=== PATIENT | male | born 2005 | race Caucasian/White ===

== ENCOUNTER 2024-08-07 18:37 | Inpatient (IN) ==
--- NOTE | 2024-08-07 19:12 | Emergency Department Note ---
Impression & Plan Suicidal ideations, Addictive gambling, Depression ED Provider Note NAME: SUNNI BERRY AGE: 18 SEX: M : 2005 ARRIVES VIA: Walk-In INFORMANT: Patient ED PROVIDER(S): Fer Ayala DO CHIEF COMPLAINT: Suicidal ideations HPI: Patient is a 18-year-old male who presents to the ER for suicidal ideations. Patient has a gambling addiction and owes a fair amount of money to someone. They are calling him and harassing him for the money. He notes is not due till tomorrow. He made statements that he is going to kill himself multiple times today. He called his mom and dad and told him that he has nothing left to live for and that he is going to kill himself. He did not express a clear plan. He notes he is unclear if he was going to kill himself at this time. He admitted that he would think of a way. He denies any headache or change in vision. No chest pain or shortness of breath. No nausea, vomiting, or diarrhea. No dysuria, urgency, or frequency. No other exacerbating or remitting factors. ADDITIONAL HISTORY OBTAINED: Per HPI Chronic Medical/Social Conditions Affecting Care: Per HPI PAST MEDICAL HISTORY:See Below PAST SURGICAL HISTORY:See Below FAMILY HISTORY:See Below SOCIAL HISTORY:See Below HOME MEDICATIONS:See Below ALLERGIES:See Below VITALS:See Below PHYSICAL EXAMINATION: GENERAL: Sitting up in bed, alert, well appearing, well nourished, no distress, non-toxic EYE EXAM: normal conjunctiva. PERRL and EOM's grossly intact. OROPHARYNX: mucous membranes are moist NECK: supple, no nuchal rigidity, no adenopathy, non-tender LUNGS: Clear to auscultation. Normal chest wall mechanics HEART: no murmurs, S1 normal and S2 normal ABDOMEN: abdomen soft, non-tender, normo-active bowel sounds, no masses, no rebound or guarding. UPPER EXTREMITIES: upper extremities are grossly normal. LOWER EXTREMITIES: No pitting edema. NEURO EXAM: Normal sensorium, cranial nerves II-XII grossly intact, normal speech, no gross weakness of arms, no gross weakness of legs. PSYCH: Admits to suicidal thoughts with no clear plan. He feels helpless. MEDICAL DECISION MAKING: Patient is a 18-year-old male who presents ER who has a gambling addiction and it was a significant amount of money to another person who was calling him to collect the money. He now has suicidal thoughts and feels as though he has nothing left to live for. Labs show no significant leukocytosis or anemia. BMP on LFTs bilirubin was unremarkable. TSH unremarkable. UA clean. Alcohol negative. Urine tox negative. COVID-negative. Patient was discussed with our psychiatric patient care associate. Referral made to 3 S. and patient was accepted on a 201. 302 was consequently declined. Consults/Care Managements Discussions: Per MDM Triage Nursing notes reviewed. Limited review of prior medical records performed Vital Signs: reviewed and remarkable for no significant abnormalities Differential diagnosis: Mood disorder, infection, hypoglycemia, electrolyte abnormalities, cardiac sources, intracerebral event, toxicologic, trauma, neurologic, as well as other pathologies. ER treatment provided: See below Diagnostics interpreted by me include EKG and cardiac monitoring as listed below: -ECG: none -Laboratory studies:Interpreted by me as stated above in MDM and shown below. Imaging studies: Xrays: As interpreted by me:none CTs show: none Procedures:none Critical Care: None Past Med/Surg History Problem List (Updated 08/07/24 @ 23:39 by Fer Ayala DO) Depression (Acute) Addictive gambling (Acute) Suicidal ideations (Acute) Social History Smoking Status: Never smoker Preferred Language: Singaporean Communication Ability: Effective Link Trainer Operator Required: No Beliefs That Will Affect Care: Christianity Christianity Beliefs: Yarsani Feels Safe at Home: Yes Gender Identity: Male Assistive Devices: None Allergies Allergies Allergy/AdvReac Type Severity Reaction Status Date / Time No Known Allergies Allergy Unverified 08/07/24 20:12 Home Meds Home Medications Medication Instructions Recorded Confirmed sertraline 50 mg PO DAILY anxiety 08/07/24 08/07/24 Results & Data (ED) Vital Signs Vital Signs - 24 hr 08/07/24 18:54 Temperature 36.9 C Temperature Source Oral Pulse Rate 96 H Respiratory Rate 18 Respiratory Effort / Characteristics Non-Labored Spontaneous Respiratory Depth Normal Blood Pressure 123/77 Blood Pressure Mean 92 Pulse Oximetry 100 Oxygen Delivery Method Room Air Sepsis Recent Fever Within 48 Hours No Sepsis New/Unexplained Change in Mental Status No Sepsis Action Taken by Nursing No Action Required Laboratory Data 08/07/24 19:00 08/07/24 19:00 Lab Results 09/22/24 09/22/24 Range/Units 19:00 19:09 WBC 7.45 (4.8-10.8) K/ul RBC 5.27 (4.70-6.10) M/uL Hgb 15.5 (14.0-18.0) g/dl Hct 44.4 (42.0-52.0) % MCV 84.3 (80.0-100.0) fL MCH 29.4 (25.0-34.0) pg MCHC 34.9 (32.0-36.0) g/dL RDW Std Deviation 38.8 (36.4-46.3) fL RDW Coeff of Roxie 12.7 (11.5-14.5) % Plt Count 280 (130-400) K/uL MPV 10.9 (9.4-12.4) fL Immature Gran % (Auto) 0.1 % Neut % (Auto) 64.1 % Lymph % (Auto) 25.1 % Emanuel % (Auto) 9.1 % Eos % (Auto) 1.1 % Baso % (Auto) 0.5 % Neut # (Auto) 4.77 (1.40-6.50) K/uL Lymph # (Auto) 1.87 (1.20-3.40) K/uL Emanuel # (Auto) 0.68 H (0.11-0.59) K/uL Eos # (Auto) 0.08 (0.00-0.50) K/uL Baso # (Auto) 0.04 (0.00-0.20) K/uL Immature Gran # (Auto) 0.01 (0.01-0.20) K/uL Sodium 138 (136-145) mmol/L Potassium 3.7 (3.5-5.1) mmol/L Chloride 105 (98-107) mmol/L Carbon Dioxide 25 (21-32) mmol/L Anion Gap 8 (3-11) BUN 16 (6-23) mg/dl Creatinine 0.84 (0.6-1.4) mg/dl Est Cr Clr Drug Dosing 140.0 ml/min Est GFR ( Amer) 147.1 ml/min Est GFR (Non-Af Amer) 126.9 ml/min BUN/Creatinine Ratio 19.0 (10-20) Glucose 138 H (70-99(Fasting)) mg/dl Calcium 9.8 (8.6-10.3) mg/dl Total Bilirubin 0.7 (0.2-1.0) mg/dl AST 22 (13-39) U/L ALT 13 (7-52) U/L Alkaline Phosphatase 80 (34-104) U/L Total Protein 8.4 H (6.0-8.3) gm/dl Albumin 4.9 (3.4-5.0) gm/dl Globulin 3.5 (2.5-4.0) gm/dl Albumin/Globulin Ratio 1.4 (0.9-2) TSH 0.997 (0.300-4.500) uIu/ml Urine Color Yellow Urine Appearance Clear (Clear) Urine pH 6.5 (4.5-7.5) Ur Specific [place] 1.020 (1.000-1.030) Urine Protein Negative (Negative) Urine Glucose (UA) Negative (Negative) Urine Ketones Negative (Negative) Urine Blood Negative (Negative) Urine Nitrite Negative (Negative) Urine Bilirubin Negative (Negative) Urine Urobilinogen Negative (Negative) Ur Leukocyte Esterase Negative (Negative) Salicylates < 3.0 L (3.0-30) mg/dl Urine Opiates Screen Neg (Neg) Ur Methadone, Qual Neg (Neg) Urine Fentanyl Screen Neg (Neg) Acetaminophen < 3 L (10-30) ug/ml Urine Barbiturates Neg (Neg) Ur Phencyclidine (PCP) Neg (Neg) U Amphetamin/Meth Scrn Neg (Neg) MDMA (Ecstasy) Screen Neg (Neg) U Benzodiazepines Scrn Neg (Neg) Ur Cocaine Metabolite Neg (Neg) U Marijuana (THC) Screen Neg (Neg) Ethyl Alcohol mg/dL < 10.0 (<10.0) mg/dl SARS-CoV-2, RNA, NAAT NEGATIVE (NEGATIVE) Discharge Plan Visit Data Chief Complaint: Mental Health Evaluation Stated Complaint: MENTAL ED Provider: Fer Ayala Discharge Problem: Suicidal ideations, Addictive gambling, Depression Patient Disposition: Admitted As Inpatient Discharge Instructions Interventions: ED Discharge Assessment Last Done: 08/07/24 21:48 Discharge Problem: Depression Qualifiers: Depression Type: unspecified Qualified Code(s): F32.A - Depression, unspecified
[2024-08-07 19:23] LABS: Basophils # (auto) 0.04 K/uL (0.00-0.20); Basophils % (auto) 0.5 %; Eosinophils # (auto) 0.08 K/uL (0.00-0.50); Eosinophils % (auto) 1.1 %; Hematocrit (blood only) 44.4 % (42.0-52.0); Hemoglobin 15.5 g/dl (14.0-18.0); Immature Granulocytes # (auto) 0.01 K/uL (0.01-0.20); Immature Granulocytes % (auto) 0.1 %; Lymphocytes # (auto) 1.87 K/uL (1.20-3.40); Lymphocytes % (auto) 25.1 %; Mean Corpuscular Hemoglobin 29.4 pg (25.0-34.0); Mean Corpuscular Hgb Conc 34.9 g/dL (32.0-36.0); Mean Corpuscular Volume 84.3 fL (80.0-100.0); Mean Platelet Volume 10.9 fL (9.4-12.4); Monocytes # (auto) 0.68 K/uL (0.11-0.59); Monocytes % (auto) 9.1 %; Neutrophils # (auto) 4.77 K/uL (1.40-6.50); Neutrophils % (auto) 64.1 %; Platelet Count 280 K/uL (130-400); RDW Coefficient of Variation 12.7 % (11.5-14.5); RDW Standard Deviation 38.8 fL (36.4-46.3); Red Blood Count 5.27 M/uL (4.70-6.10); White Blood Count 7.45 K/ul (4.8-10.8)
[2024-08-07 19:25] LABS: Appearance Urine Clear (Clear); Bilirubin Urine Negative (Negative); Blood Urine Negative (Negative); Color Urine Yellow; Glucose Urine UA Negative (Negative); Ketones Urine Negative (Negative); Leukocyte Esterase Urine Negative (Negative); Nitrite Urine Negative (Negative); Protein Urine Negative (Negative); Urobilinogen Urine Negative (Negative); pH Urine 6.5 (4.5-7.5)
[2024-08-07 19:35] LABS: Albumin Globulin Ratio 1.4 (0.9-2); Albumin Level 4.9 gm/dl (3.4-5.0); Bilirubin,Total 0.7 mg/dl (0.2-1.0); Calcium 9.8 mg/dl (8.6-10.3); Est GFR (African American) 147.1 ml/min; Est GFR (Non-African American) 126.9 ml/min; Globulin 3.5 gm/dl (2.5-4.0); Potassium 3.7 mmol/L (3.5-5.1); Total Protein 8.4 gm/dl (6.0-8.3)
[2024-08-07 19:50] LABS: Thyroid Stimulating Hormone 0.997 uIu/ml (0.300-4.500)
[2024-08-07 20:02] LABS: Acetaminophen < 3 ug/ml (10-30); Salicylate < 3.0 mg/dl (3.0-30)
[2024-08-07 20:17] LABS: Amphetamines+Metham, Urine Neg (Neg); Barbiturates, Urine Neg (Neg); Benzodiazepine, Urine Neg (Neg); Cocaine, Urine Neg (Neg); Fentanyl, Urine Neg (Neg); MDMA (Ecstacy), Urine Neg (Neg); Marijuana, Urine Neg (Neg); Methadone, Urine Neg (Neg); Opiate, Urine Neg (Neg); Phencyclidine, Urine Neg (Neg)
[2024-08-07] MEDS ORDERED: ALUMINUM/MAGNESIUM SUSP 30 ML UDC PO PRN ×2 (21:16→22:15)
[2024-08-07] MEDS ORDERED: hydrOXYzine HCl 25 MG TAB PO PRN (22:15)
[2024-08-07] MEDS ORDERED: SODIUM CHLORIDE 0.65% NA SOLN 45 ML (OCEAN) PRN (22:15)
[2024-08-07] MEDS ORDERED: BISMUTH SUBSALICYLATE LIQD 236 ML PO PRN (22:15)
[2024-08-07] MEDS ORDERED: ACETAMINOPHEN 325 MG TAB PO PRN (22:15)
[2024-08-07] MEDS ORDERED: MAGNESIUM HYDROXIDE SUSP 30 ML UDC PO PRN (22:15)
[2024-08-08] MEDS: SERTRALINE HCL 50 MG TABLET PO SCH (10:05)
[2024-08-08] MEDS: SERTRALINE HCL 50 MG TABLET PO ONE (13:06)
--- NOTE | 2024-08-08 13:43 | History & Physical ---
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 Presentation consistent with generalized anxiety disorder, major depressive disorder, and gambling disorder. Patient presents excess anxiety and worry about a number of events or activities, has difficulty controlling the worry, has associated physical symptoms, and has caused significant distress in his life. He presents a persistent gambling problem for over a year spending increasing amounts of money to achieve excitement, has difficulty cutting down, has made repeated unsuccessful efforts to control gambling, is often preoccupied with thoughts about gambling, gambles when he is feeling anxious, continues to love even after losing money to recuperate losses, relies on others to provide money to relieve desperate financial situation. Given limited improvement of depression with sertraline he would likely benefit from continued increased dose to target anxiety and gambling problems. May benefit from naltrexone for addiction issues and can explore at a later date. Labs reviewed: Thyroid, complete blood count, CMP, UDS within expected limits. We will continue to clarify the extent of a gambling and pursue therapy options. He presents a recent suicidal intent and we will monitor for safety. Overall, I spent a total of 65 minutes with this case including review of chart records, nursing report, review of lab work, direct evaluation of the patient at bedside, counseling the patient, multidisciplinary team meeting, orders, and documentation in the electronic health record. (1) Generalized anxiety disorder: (2) MDD (major depressive disorder), recurrent, in partial remission: (3) Gambling disorder, severe: Plan 08/08/2024:The patient was admitted to the [facility] ([facility]) on q15 min checks (behavioral with suicide precautions) for safety. The patient will participate in group, recreational, and milieu therapies and will be offered additional individual and family sessions as clinically appropriate. -Increase Sertraline to 100mg daily -Patorial care consult -Clinical gambling screen questionnaire Inventory Assets Strengths: motivated for change, positive relationships Needs: abstinence, financial support Suicide Risk Level Suicide Risk Level: Moderate (q15 min suicide checks) Risk Factors Assessment Male: Yes : Yes Do You Have Access To A Gun?: No Health Problems: No Mental Health Diagnoses: Yes Substance Use Disorders: No Previous Attempt: No Family History of Suicide: No Previous Psychiatric Hospitalization: No Hopelessness: Yes Protective Factors Assessment Restorationist Beliefs: Yes : No Responsible for Young Children: No Employed: No Stable Relationships: Yes Supportive Family: Yes Good Rapport with Provider: Yes Absence of Any Risk Factors Above: No Psychiatric History Identifying Data Gonzales Payan is a 18-year-old white 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 He was admitted on 08/07/24 21:16 on a 201 voluntary commitment for suicidal ideation. Chief Complaint "People harassing me and friends and family" History of Present Illness The patient reports escalating sports betting for the past 1.5 years and mainly football and basketball. Has been losing money overall. Recently was intoxicated and borrowed $5000 from a loan shark through [employer]. He lost the money gradually through online sports betting. He reports "acting irrationally" when this happened. He reports never borrowing this much and was drinking at the time. This occurred last week and the money was expected today. He reached out to his family and they were going to help him pay off the loan. The loan chart did not believe him and made threats digitally to friends and his fraternity and family members. He "feels like it was a big operation". Parents recently visited him out of town to help. In the process of dealing with this problem he became upset and threw his phone and shattered it. Yesterday he was feeling hopeless and suicidal. He denies current suicidal ideation. Reports gambling through sports betting for the past 1.5 years. He thinks about it often and he gambles more than expected. He has difficulty cutting down. He reports escalating gambling with substance use. Brief period of abstinence from gambling over the summer break. He recently did [employer] and lost $1500 gambling soon after. He reports drivers of gambling initially being interested in sports then it became a way to distract from anxiety and to aishwarya his losses. He reports not always being "thrilled" every time he winds. Reports it has become a habit. Complains of anxiety attacks with anxious ruminations that are worse at night and when he is alone. He reports his thoughts race and he has increased heart rate. Reports panic attacks where he becomes paralyzed once monthly. Was started on Zoloft by his PCP in June and reports that it has improved his mood and made him slightly less anxious. Complains of ongoing issues with anger, irritability, low mood, loss of interest, trouble falling asleep, increased risky behaviors, impulsivity, increased irritability, excess guilt. Family history of depression and anxiety in the father and treated effectively with sertraline 100 mg daily. Reports cutting his wrist over the summer to cope with anxiety as a distraction. Drinks alcohol 4 days out of the week with 3-8 drinks each day. Past occasional marijuana and psychedelic mushroom use. Denies history of prescription drug abuse. Denies having alcohol or drug problem. Reports drivers for alcohol use for social interactions. Reports having a good childhood and denies emotional abuse or neglect. Denies physical or sexual trauma. Denies a history of periods of decreased need for sleep with elevated mood, energy, goal directed activity. Denies auditory hallucinations. Social history: Sophomore at [employer]. Has outpatient PCP and get counseling through [facility]. Lives in fraternity housing with 13 roommates. Has an older brother Salvador 21 years of age. Parents and supportive. Single and sexually active. Heterosexual orientation. No legal problems. Restorationist and connects spiritually. Exercises regularly. Past Psychiatric History Current Psychiatric Diagnosis: Depression, Anxiety Do You Have Access To A Gun?: No History of Previous Suicide Attempt: No Allergies Allergy/AdvReac Type Severity Reaction Status Date / Time No Known Allergies Allergy Unverified 08/07/24 20:12 Home Medications Medication Instructions Recorded Confirmed Type sertraline 50 mg PO DAILY anxiety 08/07/24 08/07/24 History Family History Family History of: Depression Family Mental Health History Comment: father has depression Alcohol History Hx of Alcohol Use Over the Past 12 Months: Yes (Social drinker. 3-4x per week, 5-6 drinks at most per occasion) AUDIT Total Score: 5 Smoking Use Have You Smoked or Used Tobacco Products in the Last 30 Days: No Smoking Status: Never smoker Substance History Hx of Prescription Med Misuse Over the Past 12 Months: No Hx of Over the Counter Med Misuse Over the Past 12 Months: No Hx of Inhalent Misuse Over the Past 12 Months: No Hx of Organic Substance Use Over the Past 12 Months: Yes (Social use of Marjurana) Hx of Illegal Substances/Street Drug Use Over Past 12 Months: No Problems as a Result of Past Substance Use: None Identified Personal History Living Arrangements: Apartment Living Arrangements Comments: roommates (14 people total) Highest Grade Completed: Some College Marital Status: Single Number Of Children: 0 Beliefs That Will Affect Care: Restorationist Patient History Social History Smoking Status: Never smoker Preferred Language: Moroccan Communication Ability: Effective Concrete Paver Required: No Beliefs That Will Affect Care: Restorationist Restorationist Beliefs: Restoration Feels Safe at Home: Yes Gender Identity: Male Assistive Devices: None Physical Exam Mental Examination: Appearance: Disheveled Eye Contact: Sporadic Contact Motor Behavior: Wringing Hands Speech: Normal Mood: Anxious and Sad Affect: Congruent Thought Process: Intact and Linear Thought Content: Intact Hallucinations: None Insight: Fair Judgement: Poor Vital Signs (Past 24 Hours): Last Vital Signs Temp 36.4 C L 08/08/24 06:34 Pulse 76 08/08/24 06:35 Resp 16 08/08/24 06:34 BP 109/63 08/08/24 06:35 Pulse Ox 98 08/07/24 22:34 O2 Del Method Room Air 08/07/24 22:34 Exam Statement: A physical exam was performed in the ED for the purposes of medical clearance. I accept that physical as correct and adequate for the purposes of the inpatient physical exam. Results & Data ([facility]) Laboratory Results Laboratory Results - last 24 hr 08/07/24 08/07/24 19:00 19:09 WBC 7.45 RBC 5.27 Hgb 15.5 Hct 44.4 MCV 84.3 MCH 29.4 MCHC 34.9 RDW Std Deviation 38.8 RDW Coeff of Roxie 12.7 Plt Count 280 MPV 10.9 Immature Gran % (Auto) 0.1 Neut % (Auto) 64.1 Lymph % (Auto) 25.1 Maries % (Auto) 9.1 Eos % (Auto) 1.1 Baso % (Auto) 0.5 Neut # (Auto) 4.77 Lymph # (Auto) 1.87 Maries # (Auto) 0.68 H Eos # (Auto) 0.08 Baso # (Auto) 0.04 Immature Gran # (Auto) 0.01 Sodium 138 Potassium 3.7 Chloride 105 Carbon Dioxide 25 Anion Gap 8 BUN 16 Creatinine 0.84 Est Cr Clr Drug Dosing 140.0 Est GFR ( Amer) 147.1 Est GFR (Non-Af Amer) 126.9 BUN/Creatinine Ratio 19.0 Glucose 138 H Calcium 9.8 Total Bilirubin 0.7 AST 22 ALT 13 Alkaline Phosphatase 80 Total Protein 8.4 H Albumin 4.9 Globulin 3.5 Albumin/Globulin Ratio 1.4 TSH 0.997 Urine Color Yellow Urine Appearance Clear Urine pH 6.5 Ur Specific [place] 1.020 Urine Protein Negative Urine Glucose (UA) Negative Urine Ketones Negative Urine Blood Negative Urine Nitrite Negative Urine Bilirubin Negative Urine Urobilinogen Negative Ur Leukocyte Esterase Negative Salicylates < 3.0 L Urine Opiates Screen Neg Ur Methadone, Qual Neg Urine Fentanyl Screen Neg Acetaminophen < 3 L Urine Barbiturates Neg Ur Phencyclidine (PCP) Neg U Amphetamin/Meth Scrn Neg MDMA (Ecstasy) Screen Neg U Benzodiazepines Scrn Neg Ur Cocaine Metabolite Neg U Marijuana (THC) Screen Neg Ethyl Alcohol mg/dL < 10.0 SARS-CoV-2, RNA, NAAT NEGATIVE Current Inpatient Medications Current Inpatient Medications: Current Inpatient Medications Acetaminophen (Acetaminophen 325 Mg Tab) 650 mg PO Q4H PRN PRN Reason: Headache or Minor Fever Stop: 09/06/24 22:14 Al Hydrox/Mg Hydrox/Simethicone (Aluminum/Magnesium Susp 30 Ml Udc) 30 ml PO Q4H PRN PRN Reason: GI Upset Stop: 09/06/24 22:14 Bismuth Subsalicylate (Bismuth Subsalicylate Liqd 236 Ml) 15 ml PO PRN PRN PRN Reason: Loose Stool Stop: 09/06/24 22:14 Hydroxyzine HCl (Hydroxyzine Hcl 25 Mg Tab) 50 mg PO HSZ PRN PRN Reason: Insomnia Stop: 09/06/24 22:14 Hydroxyzine HCl (Hydroxyzine Hcl 25 Mg Tab) 25 mg PO Q4H PRN PRN Reason: Anxiety Stop: 09/06/24 22:14 Magnesium Hydroxide (Magnesium Hydroxide Susp 30 Ml Udc) 30 ml PO DAILY PRN PRN Reason: Constipation Stop: 09/06/24 22:14 Sertraline HCl (Sertraline Hcl 100 Mg Tablet) 100 mg PO QAM DANIELLE Stop: 09/08/24 08:59 Sodium Chloride (Sodium Chloride 0.65% Na Soln 45 Ml ([place])) 1 - 2 sprays NA PRN PRN PRN Reason: Nasal Dryness/Congestion Stop: 09/06/24 22:14
[2024-08-09] MEDS: SERTRALINE HCL 100 MG TABLET PO SCH (09:14)
--- NOTE | 2024-08-09 15:34 | Psychiatric Progress Note ---
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 Patient presents an improved outlook today and is contemplative for abstinence from gambling. We clarified problems associated with gambling, associations with substance use, sources of funds, gambling situations to provide insight into high risk scenarios so that he can prevent future relapse. He is tolerating the increased dose of sertraline well and we will plan to continue. Would benefit from online support groups for gambling and outpatient psychotherapy. Family highly concerned about escalation in gambling and downstream problems with anxiety, mood, safety, financial issues recommending inpatient rehab. Will discuss disposition plan with patient. Overall, I spent a total of 65 minutes with this case including review of chart records, nursing report, review of lab work, direct evaluation of the patient at bedside, counseling the patient, multidisciplinary team meeting, orders, gathering collateral, and documentation in the electronic health record. (1) Generalized anxiety disorder: (2) MDD (major depressive disorder), recurrent, in partial remission: (3) Gambling disorder, severe: Plan 08/09/2024: Continue medications and treatment plan. 08/08/2024:The patient was admitted to the [facility] ([facility] inpatient mental health unit) on q15 min checks (behavioral with suicide precautions) for safety. The patient will participate in group, recreational, and milieu therapies and will be offered additional individual and family sessions as clinically appropriate. -Increase Sertraline to 100mg daily -Pastoral care consult -Clinical gambling screen questionnaire Inventory Assets Strengths: motivated for change, positive relationships Needs: abstinence, financial support Suicide Risk Level Suicide Risk Level: Moderate (q15 min suicide checks) Risk Factors Assessment Male: Yes : Yes Do You Have Access To A Gun?: No Health Problems: No Mental Health Diagnoses: Yes Substance Use Disorders: No Previous Attempt: No Family History of Suicide: No Previous Psychiatric Hospitalization: No Hopelessness: Yes Protective Factors Assessment Baptist Beliefs: Yes : No Responsible for Young Children: No Employed: No Stable Relationships: Yes Supportive Family: Yes Good Rapport with Provider: Yes Absence of Any Risk Factors Above: No Interval History Identifying Information Gonzales Payan is a 18-year-old white 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 Chief Complaint "Good" Review of Systems Sleep Information Total Hours of Sleep: 7 Meal Information Percent Meal Consumed - Breakfast: 100 Percent Meal Consumed - Lunch: 100 Percent Meal Consumed - Dinner: 100 Subjective Subjective Patient was seen & assessed and interval progress reviewed with treatment team nursing and social work. Patient reports sleeping well. Is tolerating higher dose of Zoloft. Denies headache and GI side effects. Reports that the loan that he was given was from a sports [employer] agency who has a platform. The family was able to negotiate a lower amount to be paid back and has been settled. Feels his friends and family have been supportive. Says that this hospitalization is his "reset" and plans for abstinence from gambling in the future. Reports hospitalization has been a stress relief and says that it is "the least amount of stress and anxiety have had in months." We discussed association with alcohol use and gambling and he is considering alcohol abstinence. He is anxious about the impact of the threats to his friends and family and how far it went. He denies suicidal ideation. Clarified the areas of gambling that have been problematic for him and this includes majoring on sports and playing video poker other card game machines online. He reports becoming restless or irritable when attempting to cut down on missy activities. He has kept family or friends from knowing how much he has spent on the activities. He has had financial trouble as a result of gambling activities and has had to have help from family for living expenses. He feels he might have a problem with gambling and that has caused worsening stress and anxiety. He says most of the time he spends larger amounts of money to get the same excitement from gambling, has gone back another day to try to win back the money he lost, has been criticized by others that he has a gambling problem, and has felt guilty about the way he gambles or what happens when he gambles. He reports missing classes due to gambling issues and that his grades would have been better this semester if he was not. He has had to ask family members to loan him money to bail them out of a desperate situation due to g ambling. The most amount of money he is ever gambled in a single day is $5000. To pay for gambling debts he has had to borrow money from his own account, from relatives, from credit cards, selling stocks bonds or other securities, or credit line from a binder selector. Spoke to patient's mother and father with permission (JAMALNASIR ([phone])): Gonzales has minimized story with CAPs. Has been gambling over a year. End of summer, he was extremely depressed, self harm via cutting one time. Considering not returning to school. Went to PCP and got depression/anxiety medication. CAPs recommended him not returning to school. Pt wanted to return to school. Made contract with pt about no gambling and regular counseling. Parents have been staying in [place] since pt started . Each week debts have been growing. Has been online gambling with off [employer] companies; has been getting loans for 1000s of dollars. Believes these are scams where they blackmail him. Pt has been chasing his losses. Pt checked into the hospital the night he, his family, and his fraternity friends were getting threatened. Called parents in panic that he was going to kill himself. Parents recommending inpatient rehab facility. Pt drinks. Used mushrooms 2 weeks ago. Still has online debt, [phone]$ debt. Considering inpatient rehab in [place]. Physical Exam Mental Examination Appearance: Disheveled Eye Contact: Sporadic Contact Motor Behavior: Wringing Hands Speech: Normal Mood: Anxious and Sad Affect: Congruent Thought Process: Intact and Linear Thought Content: Intact Hallucinations: None Insight: Fair Judgement: Poor Vital Signs (Past 24 Hours) Last Vital Signs Temp 36.5 C 08/09/24 06:46 Pulse 58 L 08/09/24 06:49 Resp 16 08/09/24 06:46 BP 101/63 08/09/24 06:49 Pulse Ox 98 08/07/24 22:34 O2 Del Method Room Air 08/07/24 22:34 Results & Data (U) Current Inpatient Medications Current Inpatient Medications: Current Inpatient Medications Acetaminophen (Acetaminophen 325 Mg Tab) 650 mg PO Q4H PRN PRN Reason: Headache or Minor Fever Stop: 09/06/24 22:14 Al Hydrox/Mg Hydrox/Simethicone (Aluminum/Magnesium Susp 30 Ml Udc) 30 ml PO Q4H PRN PRN Reason: GI Upset Stop: 09/06/24 22:14 Bismuth Subsalicylate (Bismuth Subsalicylate Liqd 236 Ml) 15 ml PO PRN PRN PRN Reason: Loose Stool Stop: 09/06/24 22:14 Hydroxyzine HCl (Hydroxyzine Hcl 25 Mg Tab) 50 mg PO HSZ PRN PRN Reason: Insomnia Stop: 09/06/24 22:14 Hydroxyzine HCl (Hydroxyzine Hcl 25 Mg Tab) 25 mg PO Q4H PRN PRN Reason: Anxiety Stop: 09/06/24 22:14 Magnesium Hydroxide (Magnesium Hydroxide Susp 30 Ml Udc) 30 ml PO DAILY PRN PRN Reason: Constipation Stop: 09/06/24 22:14 Sertraline HCl (Sertraline Hcl 100 Mg Tablet) 100 mg PO QAM DANIELLE Stop: 09/08/24 08:59 Last Admin: 08/09/24 09:14 Dose: 100 mg Sodium Chloride (Sodium Chloride 0.65% Na Soln 45 Ml ([place])) 1 - 2 sprays NA PRN PRN PRN Reason: Nasal Dryness/Congestion Stop: 09/06/24 22:14 Mental Health & Subst Abuse Tx Therapist Name of Therapist: Lorraine ([address] [place] [id number]) Therapist's Date of Therapist Appointment: 08/22/24 Time of Therapist Appointment: 1pm Therapy Appointment Comment: In person. Psychiatry appt will be scheduled after intake with therapist Buying Agent Name of Buying Agent: None Post Discharge Appointments Primary Care Physician Name Of Family Doctor/PCP: Sascha San Other #1: Name of Aftercare Appointment: [facility] (weekly appt) Phone Number of Aftercare Appointment: [phone] Date of Aftercare Appointment: 08/16/24 Time of Aftercare Appointment: 10AM
[2024-08-10] MEDS: NALTREXONE HCL 50 MG TAB PO ONE (11:05)
--- NOTE | 2024-08-10 13:31 | Psychiatric Progress Note ---
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 Patient appears to be in the contemplative stage about quitting gambling. Conducted motivational interviewing and relapse prevention training today. He does not seem ready to be abstinent from substances such as alcohol and illicit drugs despite a clear connection to problematic gambling. Recommended to start naltrexone as an off-label medication for his addiction; LFTs stable and within expected limits; patient was educated on side effects and adverse effects and was agreeable to try the medication. Overall, I spent a total of 40 minutes with this case including review of chart records, nursing report, review of lab work, direct evaluation of the patient at bedside, counseling the patient, multidisciplinary team meeting, orders, and documentation in the electronic health record. (1) Generalized anxiety disorder: (2) MDD (major depressive disorder), recurrent, in partial remission: (3) Gambling disorder, severe: Plan 08/10/2024: Start naltrexone 25 mg every morning and increase to 50 mg every morning tomorrow. 08/09/2024: Continue medications and treatment plan. 08/08/2024:The patient was admitted to the [facility] ([facility] mental health unit) on q15 min checks (behavioral with suicide precautions) for safety. The patient will participate in group, recreational, and milieu therapies and will be offered additional individual and family sessions as clinically appropriate. -Increase Sertraline to 100mg daily -Pastoral care consult -Clinical gambling screen questionnaire Inventory Assets Strengths: motivated for change, positive relationships Needs: abstinence, financial support Suicide Risk Level Suicide Risk Level: Moderate (q15 min suicide checks) Risk Factors Assessment Male: Yes : Yes Do You Have Access To A Gun?: No Health Problems: No Mental Health Diagnoses: Yes Substance Use Disorders: No Previous Attempt: No Family History of Suicide: No Previous Psychiatric Hospitalization: No Hopelessness: Yes Protective Factors Assessment Zoroastrian Beliefs: Yes : No Responsible for Young Children: No Employed: No Stable Relationships: Yes Supportive Family: Yes Good Rapport with Provider: Yes Absence of Any Risk Factors Above: No Interval History Identifying Information Gonzales Payan is a 18-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 Chief Complaint "Good". Review of Systems Sleep Information Total Hours of Sleep: 6.5 Meal Information Percent Meal Consumed - Breakfast: 100 Percent Meal Consumed - Lunch: 100 Percent Meal Consumed - Dinner: 100 Subjective Subjective Patient was seen & assessed and interval progress reviewed with treatment team nursing and social work Patient slept well and got 6.5 hours. He reports that parents have been pushing for inpatient rehabilitation. He does not want to miss school. Father has been threatening to withdraw tuition money. He reports he would stay here on loans if that was the case. Verbalized to the patient that family is concerned about his wellbeing. His current plan is to engage in online support groups, stay away from his phone at times, distract himself with schoolwork, and to cut down drinking. We walked through his past relapse and what occurred. He reports having stressors about money such as paying fraternity dues, fixing his computer, getting a new phone. He ruminates about the stressors and then does the math and believes he needs extra money. Then he considers gambling on his phone and believes he is going to win the money to pay for these things because he has won money in the past. He sees this as a "quick fix". He then opens the truman on his phone and at that time he reports feeling "stressed and desperate". Once he places the bet he reports feeling slightly better. After that happens he tends to lose focus and keeps checking on his sports bets. He denies suicidal ideation. Physical Exam Mental Examination Appearance: Disheveled Eye Contact: Sporadic Contact Motor Behavior: Wringing Hands Speech: Normal Mood: Anxious and Sad Affect: Congruent Thought Process: Intact and Linear Thought Content: Intact Hallucinations: None Insight: Fair Judgement: Poor Vital Signs (Past 24 Hours) Last Vital Signs Temp 36 C L 08/10/24 06:30 Pulse 86 08/10/24 06:31 Resp 16 08/10/24 06:30 BP 104/58 L 08/10/24 06:31 Pulse Ox 98 08/07/24 22:34 O2 Del Method Room Air 08/07/24 22:34 Results & Data ([facility]) Current Inpatient Medications Current Inpatient Medications: Current Inpatient Medications Acetaminophen (Acetaminophen 325 Mg Tab) 650 mg PO Q4H PRN PRN Reason: Headache or Minor Fever Stop: 09/06/24 22:14 Al Hydrox/Mg Hydrox/Simethicone (Aluminum/Magnesium Susp 30 Ml Udc) 30 ml PO Q4H PRN PRN Reason: GI Upset Stop: 09/06/24 22:14 Bismuth Subsalicylate (Bismuth Subsalicylate Liqd 236 Ml) 15 ml PO PRN PRN PRN Reason: Loose Stool Stop: 09/06/24 22:14 Hydroxyzine HCl (Hydroxyzine Hcl 25 Mg Tab) 50 mg PO HSZ PRN PRN Reason: Insomnia Stop: 09/06/24 22:14 Hydroxyzine HCl (Hydroxyzine Hcl 25 Mg Tab) 25 mg PO Q4H PRN PRN Reason: Anxiety Stop: 09/06/24 22:14 Magnesium Hydroxide (Magnesium Hydroxide Susp 30 Ml Udc) 30 ml PO DAILY PRN PRN Reason: Constipation Stop: 09/06/24 22:14 Naltrexone HCl (Naltrexone Hcl 50 Mg Tab) 50 mg PO DAILY DANIELLE Stop: 09/10/24 08:59 Sertraline HCl (Sertraline Hcl 100 Mg Tablet) 100 mg PO QAM DANIELLE Stop: 09/08/24 08:59 Last Admin: 08/10/24 08:53 Dose: 100 mg Sodium Chloride (Sodium Chloride 0.65% Na Soln 45 Ml ([place])) 1 - 2 sprays NA PRN PRN PRN Reason: Nasal Dryness/Congestion Stop: 09/06/24 22:14 Mental Health & Subst Abuse Tx Psychiatrist Name of Psychiatrist: Lorraine Therapist Name of Therapist: Lorraine ([address] [place], [place] [id number]) Therapist's Date of Therapist Appointment: 08/22/24 Time of Therapist Appointment: 1pm Therapy Appointment Comment: In person. Psychiatry appt will be scheduled after intake with therapist Director E Learning Name of Director E Learning: None Post Discharge Appointments Primary Care Physician Name Of Family Doctor/PCP: Sascha San Specialist Name of Specialist: Cardiovascular Disease Specialist on Compulsive Gambling Phone Number for Specialist: [phone] Specialty Appointment Comment: Resource for gambling addiction Other #1: Name of Aftercare Appointment: [facility] (weekly appt) Phone Number of Aftercare Appointment: [phone] Date of Aftercare Appointment: 08/16/24 Time of Aftercare Appointment: 10AM
[2024-08-10] MEDS: hydrOXYzine HCl 25 MG TAB PO PRN (23:26)
[2024-08-11] MEDS: NALTREXONE HCL 50 MG TAB PO SCH (10:06)
--- NOTE | 2024-08-11 10:23 | Discharge Summary ---
Date of Service August 11, 2024 History of Present Illness The patient reports escalating sports betting for the past 1.5 years and mainly football and basketball. Has been losing money overall. Recently was intoxicated and borrowed $5000 from a loan shark through [employer]. He lost the money gradually through online sports betting. He reports "acting irrationally" when this happened. He reports never borrowing this much and was drinking at the time. This occurred last week and the money was expected today. He reached out to his family and they were going to help him pay off the loan. The loan chart did not believe him and made threats digitally to friends and his fraternity and family members. He "feels like it was a big operation". Parents recently visited him out of town to help. In the process of dealing with this problem he became upset and threw his phone and shattered it. Yesterday he was feeling hopeless and suicidal. He denies current suicidal ideation. Reports gambling through sports betting for the past 1.5 years. He thinks about it often and he gambles more than expected. He has difficulty cutting down. He reports escalating gambling with substance use. Brief period of abstinence from gambling over the summer break. He recently did shrooms and lost $1500 gambling soon after. He reports drivers of gambling initially being interested in sports then it became a way to distract from anxiety and to aishwarya his losses. He reports not always being "thrilled" every time he winds. Reports it has become a habit. Complains of anxiety attacks with anxious ruminations that are worse at night and when he is alone. He reports his thoughts race and he has increased heart rate. Reports panic attacks where he becomes paralyzed once monthly. Was started on Zoloft by his PCP in June and reports that it has improved his mood and made him slightly less anxious. Complains of ongoing issues with anger, irritability, low mood, loss of interest, trouble falling asleep, increased risky behaviors, impulsivity, increased irritability, excess guilt. Family history of depression and anxiety in the father and treated effectively with sertraline 100 mg daily. Reports cutting his wrist over the summer to cope with anxiety as a distraction. Drinks alcohol 4 days out of the week with 3-8 drinks each day. Past occasional marijuana and psychedelic mushroom use. Denies history of prescription drug abuse. Denies having alcohol or drug problem. Reports drivers for alcohol use for social interactions. Reports having a good childhood and denies emotional abuse or neglect. Denies physical or sexual trauma. Denies a history of periods of decreased need for sl eep with elevated mood, energy, goal directed activity. Denies auditory hallucinations. Social history: Sophomore at [employer]. Has outpatient PCP and get counseling through [facility]. Lives in fraternity housing with 13 roommates. Has an older brother Salvador 21 years of age. Parents and supportive. Single and sexually active. Heterosexual orientation. No legal problems. Buddhism and connects spiritually. Exercises regularly. Physical Exam Mental Examination Appearance: Disheveled Eye Contact: Maintains Eye Contact Motor Behavior: Unremarkable Speech: Normal Mood: Anxious Affect: Congruent Thought Process: Intact and Linear Thought Content: Intact Hallucinations: None Insight: Fair (to limited) Judgement: Poor (to limited, improved) Vital Signs (Past 24 Hours) Last Vital Signs Temp 36.6 C 08/11/24 06:40 Pulse 79 08/11/24 06:41 Resp 16 08/11/24 06:40 BP 86/54 L 08/11/24 06:41 Pulse Ox 98 08/07/24 22:34 O2 Del Method Room Air 08/07/24 22:34 Principal Diagnosis Gambling disorder, severe Psychiatric Data See daily stay summary. In short, safety was maintained and the patient was cooperative with care. Medication changes included increasing Sertraline to 100mg daily, starting Naltrexone 50mg daily for gambling disorder and they tolerated this well. A family session was held and safety plan was completed prior to discharge. Conducted multiple sessions of motivational interviewing and relapse prevention training to improve insight. See daily notes for details about extent of gambling problems, past relapses, and pt preferences for treatment. Day of Discharge Assessment Today the patient voices readiness for discharge. They note improvement in mood and deny thoughts to harm self or others. Thoughts remain organized and they are improved from admission. There is no evidence of psychosis. They agree to take mediations as prescribed and keep follow-up appointments. They are stable for discharge to outpatient level of care. Transition of Care Transition Of Care Record: was reviewed with the patient Advance Directives Advance Directives Information Provided: Yes Advance Directives: No Mental Health Advance Directive: No Advance Directives on File: No Living Will: No Power of Director Of Programming: No Advance Directives Reason:: Declines as Mental Health Visit. Risk Factors Assessment Male: Yes : Yes Do You Have Access To A Gun?: No Health Problems: No Mental Health Diagnoses: Yes Substance Use Disorders: No Previous Attempt: No Family History of Suicide: No Previous Psychiatric Hospitalization: No Hopelessness: Yes Protective Factors Assessment Buddhism Beliefs: Yes : No Responsible for Young Children: No Employed: No Stable Relationships: Yes Supportive Family: Yes Good Rapport with Provider: Yes Absence of Any Risk Factors Above: No Discharge Data Lab Results 08/07/24 08/07/24 19:00 19:09 WBC 7.45 RBC 5.27 Hgb 15.5 Hct 44.4 MCV 84.3 MCH 29.4 MCHC 34.9 RDW Std Deviation 38.8 RDW Coeff of Roxie 12.7 Plt Count 280 MPV 10.9 Immature Gran % (Auto) 0.1 Neut % (Auto) 64.1 Lymph % (Auto) 25.1 Storey % (Auto) 9.1 Eos % (Auto) 1.1 Baso % (Auto) 0.5 Neut # (Auto) 4.77 Lymph # (Auto) 1.87 Storey # (Auto) 0.68 H Eos # (Auto) 0.08 Baso # (Auto) 0.04 Immature Gran # (Auto) 0.01 Sodium 138 Potassium 3.7 Chloride 105 Carbon Dioxide 25 Anion Gap 8 BUN 16 Creatinine 0.84 Est Cr Clr Drug Dosing 140.0 Est GFR ( Amer) 147.1 Est GFR (Non-Af Amer) 126.9 BUN/Creatinine Ratio 19.0 Glucose 138 H Calcium 9.8 Total Bilirubin 0.7 AST 22 ALT 13 Alkaline Phosphatase 80 Total Protein 8.4 H Albumin 4.9 Globulin 3.5 Albumin/Globulin Ratio 1.4 TSH 0.997 Urine Color Yellow Urine Appearance Clear Urine pH 6.5 Ur Specific [place] 1.020 Urine Protein Negative Urine Glucose (UA) Negative Urine Ketones Negative Urine Blood Negative Urine Nitrite Negative Urine Bilirubin Negative Urine Urobilinogen Negative Ur Leukocyte Esterase Negative Salicylates < 3.0 L Urine Opiates Screen Neg Ur Methadone, Qual Neg Urine Fentanyl Screen Neg Acetaminophen < 3 L Urine Barbiturates Neg Ur Phencyclidine (PCP) Neg U Amphetamin/Meth Scrn Neg MDMA (Ecstasy) Screen Neg U Benzodiazepines Scrn Neg Ur Cocaine Metabolite Neg U Marijuana (THC) Screen Neg Ethyl Alcohol mg/dL < 10.0 SARS-CoV-2, RNA, NAAT NEGATIVE Hospital Course (1) Generalized anxiety disorder: (2) MDD (major depressive disorder), recurrent, in partial remission: (3) Gambling disorder, severe: Plan 08/10/2024: Start naltrexone 25 mg every morning and increase to 50 mg every morning tomorrow. 08/09/2024: Continue medications and treatment plan. 08/08/2024:The patient was admitted to the [facility] on q15 min checks (behavioral with suicide precautions) for safety. The patient will participate in group, recreational, and milieu therapies and will be offered additional individual and family sessions as clinically appropriate. -Increase Sertraline to 100mg daily -Pastoral care consult -Clinical gambling screen questionnaire Mental Health & Subst Abuse Tx Psychiatrist Name of Psychiatrist: Lorraine Therapist Name of Therapist: Lorraine ([address] [employer] [facility] [employer] [place] [id number]) Therapist's Date of Therapist Appointment: 08/22/24 Time of Therapist Appointment: 1pm Therapy Appointment Comment: In person. Psychiatry appt will be scheduled after intake with therapist [employer] Name of [employer] Senior Officer: None Post Discharge Appointments Primary Care Physician Name Of Family Doctor/PCP: Sascha San Primary Care Provider Appointment Comment: call for med refills & as needed. Specialist Name of Specialist: Vulcanizing Machine Operator on Compulsive Gambling Phone Number for Specialist: [phone] Specialty Appointment Comment: Resource for gambling addiction Other #1: Name of Aftercare Appointment: [facility] [address] (weekly appt) Phone Number of Aftercare Appointment: [phone] Date of Aftercare Appointment: 08/16/24 Time of Aftercare Appointment: 10AM Contact Information Discharge Discharge Address: [address] [place] [address],[place] [id number] Discharge Plan Discharge Items Patient Disposition: Home - Self-Care Reason For Visit: SUICIDAL IDEATIONS Discharge Diagnosis: (1) Generalized anxiety disorder: (2) MDD (major depressive disorder), recurrent, in partial remission: (3) Gambling disorder, severe: Condition on Discharge: Fair Activity: Resume your previous activity Non-emergency contact: Primary Care Provider and Therapist Call non-emergency contact if: you have any medication questions and your symptoms worsen Follow-up/Referrals: Fernie San Jr, MD [Primary Care Provider] - Diet: Regular Addtl Attending Provider Instructions: -Continue Sertraline 100mg for daily -Continue Naltrexone 50mg daily -Engage in regular outpatient therapy -Daily mindfulness meditations to address concerns about financial worries, ground self -Reflect on past times you have relapsed and see what changes you can make to promote positive behaviors Pending Studies at Discharge: No Stand-Alone Forms: My [facility] [employer], Smoking Cessation Medications and DC Order Prescriptions: New naltrexone 50 mg Tablet 50 mg PO DAILY Qty: 30 1RF sertraline 100 mg Tablet 100 mg PO QAM Qty: 30 1RF hydroxyzine HCl 25 mg Tablet 25 mg PO BID PRN (Reason: anxiety, insomnia) Qty: 60 0RF Discontinued sertraline 50 mg PO DAILY Discharge Orders: Discharge Order (Routine); Ordered 08/11/24 Ordered By: David Thrasher Admission Data Admit Date/Time: 08/07/24 21:16 Attending Provider: David Thrasher Admit Provider: David Thrasher Primary Care Provider: Fernie San Jr C[place] [address] D/C day mgmt > 30 min Patient Type Established History Detailed Exam Detailed Medical Decision Making Moderate Complexity Diagnoses Generalized anxiety disorder F41.1 MDD (major depressive disorder), recurrent, in partial remission F33.41 Gambling disorder, severe F63.0
== END 2024-08-11 14:50 | disposition home or self-care (01) | DRG 880 ==
LOC: ED 18:37 → 3S 21:16